=== PATIENT | female | born 2000 | race Caucasian/White ===

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

== ENCOUNTER → 2021-07-22 14:20 | Outpatient (CLI) | payer OTHER, SELFPAY ==
--- NOTE | 2021-07-22 14:25 | US_ITS ---
EXAM: US RETROPERITONEAL COMPLETE, RENAL CLINICAL INDICATION: UTI TECHNIQUE: Grayscale and color Doppler sonographic evaluation of the retroperitoneum was performed. This report was created using [employer] technology. COMPARISON: None. FINDINGS: RIGHT KIDNEY: Unremarkable. No hydronephrosis. No shadowing calculus. No focal lesion. No perinephric collection is demonstrated. LEFT KIDNEY: Unremarkable. No hydronephrosis. No shadowing calculus. No focal lesion. No perinephric collection is demonstrated. BLADDER: Echogenic foci within the urinary bladder. US/Kidney and Bladder IMPRESSION: 1. Echogenic foci within the urinary bladder. Infectious debris versus proteinaceous material versus hemorrhagic products. Recommend correlation with urinalysis. 2. No hydronephrosis. Electronically Signed: Thomas Adames MD ([place]) at 16:15 EDT , Service support ,
== END ==
PROVIDERS: Visit Provider Pediatrics
DX: N39.0 Urinary tract infection, site not specified (principal)
CPT/HCPCS: 76770